=== PATIENT | male | born 1985 ===

== ENCOUNTER 2017-02-09 12:31 | Emergency (ER) | payer MEDICAID, OTHER ==
[2017-02-09 12:32] VITALS: BMI 29.5
[2017-02-09 12:51] VITALS: BP 137/92; PULSE 73; RESP 18; TEMP 97.9; O2SAT 98
--- NOTE | 2017-02-09 14:12 | RAD ---
PROCEDURE: Left Hand Radiographs. HISTORY: pain to dorsum hand s/p crush injury COMPARISON: None. FINDINGS: BONES: Normal. No fracture. JOINTS: Normal. No osteoarthritic changes. SOFT TISSUES: Normal. OTHER FINDINGS: None. IMPRESSION: Normal left hand radiographs.
--- NOTE | 2017-02-09 14:33 | C.PDOC ---
Time Seen by Provider: 02/09/17 13:19 Chief Complaint (Nursing): Lower Extremity Problem/Injury Past Medical History Vital Signs: Last Vital Signs Temp 97.9 F 02/09/17 12:47 Pulse 73 02/09/17 12:47 Resp 18 02/09/17 12:47 BP 137/92 H 02/09/17 12:47 Pulse Ox 98 02/09/17 12:47 - Social History Hx Alcohol Use: No Hx Substance Use: No - Immunization History Hx Tetanus Toxoid Vaccination: No Hx Influenza Vaccination: No Hx Pneumococcal Vaccination: No ED Course And Treatment O2 Sat by Pulse Oximetry: 98 Medical Decision Making Medical Decision Making: IMPRESSION: Normal left hand radiographs. hand xray neg for fx; pt to be discharged with med clinic and ortho outpt follow up. Disposition Counseled Patient/Family Regarding: Studies Performed, Diagnosis, Need For Followup - Disposition Referrals: Hussein Cornejo MD [Staff Provider] - [facility] at [facility] [Outside] Disposition: HOME/ ROUTINE Disposition Time: 14:32 Condition: STABLE Additional Instructions: Please follow up with Dr Cornejo (othopedist) for back, knee and hand pain, as well as medical clinic for referral to physcial therapy. Take ibuprofen 600 mg by mouth every 6 hours (with food) if needed. Forms: [facility] (Bulgarian), General Discharge Instructions - Clinical Impression Clinical Impression: Left hand pain, Chronic pain of left knee
--- NOTE | 2017-02-09 14:39 | C.PDOC ---
History Of Present Illness 31 year old male presents to the ED for evaluation of chronic lower back pain and chronic left knee pain. Patient states he works in construction and suffered a crushing injury to his left hand 2 weeks ago and notes the area is still painful. Patient denies extremity numbness and tingling sensation at this time, no lower extremity weakness, no bladder or bowel dysfunction, no saddle anesthesia. Time Seen by Provider: 02/09/17 13:19 Chief Complaint (Nursing): Lower Extremity Problem/Injury History Per: Patient History/Exam Limitations: no limitations Onset/Duration Of Symptoms: Days Current Symptoms Are (Timing): Still Present Additional History Per: Patient Past Medical History Reviewed: Historical Data, Nursing Documentation, Vital Signs Vital Signs: Last Vital Signs Temp 97.9 F 02/09/17 12:47 Pulse 73 02/09/17 12:47 Resp 18 02/09/17 12:47 BP 137/92 H 02/09/17 12:47 Pulse Ox 98 02/11/17 19:00 - Medical History PMH: No Chronic Diseases Surgical History: No Surg Hx Family History: States: Unknown Family Hx - Social History Hx Alcohol Use: No Hx Substance Use: No - Immunization History Hx Tetanus Toxoid Vaccination: No Hx Influenza Vaccination: No Hx Pneumococcal Vaccination: No Review Of Systems Musculoskeletal: Positive for: Back Pain (lower ), Hand Pain (left), Other ( left knee pain ) Neurological: Negative for: Weakness, Numbness Physical Exam - Physical Exam Appears: Non-toxic, No Acute Distress Skin: Normal Color, Warm, Dry Back: No Vertebral Tenderness, No Paraspinal Tenderness Extremity: Normal ROM (to bilateral knees ), Tenderness (mild, to dorsum of left hand ), Capillary Refill (less than 2 seconds ), No Swelling Pulses: Left Radial: Normal Neurological/Psych: Oriented x3, Normal Speech, Normal Cognition, Normal Sensation Gait: Steady ED Course And Treatment O2 Sat by Pulse Oximetry: 98 (on RA) Pulse Ox Interpretation: Normal Medical Decision Making Medical Decision Making: Progress: Left hand XR ordered. IMPRESSION: Normal left hand radiographs. hand xray neg for fx; pt to be discharged with med clinic and ortho outpt follow up. Disposition - Disposition Referrals: [facility] at [facility] [Outside] Hussein Cornejo MD [Staff Provider] - Disposition: HOME/ ROUTINE Disposition Time: 14:30 Condition: STABLE Additional Instructions: Please follow up with Dr Cornejo (othopedist) for back, knee and hand pain, as well as medical clinic for referral to physcial therapy. Take ibuprofen 600 mg by mouth every 6 hours (with food) if needed. Forms: General Discharge Instructions, [facility] (Malaysian), Work Excuse - Clinical Impression Clinical Impression: Left hand pain, Chronic pain of left knee - PA / [employer] / Resident Statement MD/DO has reviewed & agrees with the documentation as recorded. - Scribe Statement The provider has reviewed the documentation as recorded by the Scribe (Britt Koelher) All medical record entries made by the Scribe were at my direction and personally dictated by me. I have reviewed the chart and agree that the record accurately reflects my personal performance of the history, physical exam, medical decision making, and the department course for this patient. I have also personally directed, reviewed, and agree with the discharge instructions and disposition.
== END 2017-02-09 14:42 | disposition home or self-care (01) ==
LOC: C.ER 12:31
DX: M79.642 Pain in left hand (principal); M25.562 Pain in left knee; G89.29 Other chronic pain

== ENCOUNTER 2017-04-30 09:19 | Emergency (ER) | payer MEDICAID, OTHER ==
[2017-04-30 09:20] VITALS: BMI 29.5
[2017-04-30 09:37] VITALS: BP 129/80; PULSE 79; RESP 15; TEMP 98.2; O2SAT 99
[2017-04-30] MEDS ORDERED: Lidocaine 5% Patch TD STA (10:01)
--- NOTE | 2017-04-30 10:01 | C.PDOC ---
History Of Present Illness 31 y/o male, with history of scoliosis, presents to the ER for evaluation of lower back pain which began after he fell down the steps and slid on his back last night. Patient reports that that he has pain mainly in the lower lumbar region. Patient reports that the pain is still throbbing. Patient denies headache, neck pain, nausea, vomiting, and diarrhea. Time Seen by Provider: 04/30/17 09:57 Chief Complaint (Nursing): Back Pain History Per: Patient History/Exam Limitations: no limitations Onset/Duration Of Symptoms: Days Current Symptoms Are (Timing): Still Present Severity: Moderate Past Medical History Reviewed: Historical Data, Nursing Documentation, Vital Signs Vital Signs: Last Vital Signs Temp 98.2 F 04/30/17 09:33 Pulse 79 04/30/17 09:33 Resp 15 04/30/17 09:33 BP 129/80 04/30/17 09:33 Pulse Ox 99 04/30/17 12:20 - Medical History PMH: Depression Surgical History: No Surg Hx Family History: States: No Known Family Hx - Social History Hx Alcohol Use: No Hx Substance Use: No - Immunization History Hx Tetanus Toxoid Vaccination: No Hx Influenza Vaccination: No Hx Pneumococcal Vaccination: No Review Of Systems Except As Marked, All Systems Reviewed And Found Negative. Constitutional: Negative for: Fever, Chills Gastrointestinal: Negative for: Nausea, Vomiting, Diarrhea Genitourinary: Negative for: Dysuria, Hematuria Musculoskeletal: Negative for: Neck Pain Neurological: Negative for: Headache Physical Exam - Physical Exam Appears: Non-toxic, No Acute Distress, Other (awake, alert) Skin: Normal Color, Warm Head: Atraumatic, Normacephalic Eye(s): bilateral: Normal Inspection Neck: Normal ROM, No Midline Cervical Tenderness, Supple Chest: Symmetrical Cardiovascular: Rhythm Regular Respiratory: Normal Breath Sounds, No Accessory Muscle Use, No Rales, No Rhonchi , No Wheezing Back: Normal Inspection, No CVA Tenderness, No Paraspinal Tenderness Extremity: Normal ROM Neurological/Psych: Oriented x3, Normal Speech, Normal Motor, Normal Sensation ED Course And Treatment O2 Sat by Pulse Oximetry: 99 (RA) Pulse Ox Interpretation: Normal Medical Decision Making Medical Decision Making: Impression: Lower Back Pain Plan: --Flexeril PO --Motrin PO --Tylenol PO --Lidoderm Patch Patient feeling better, will d/c with referral and meds Disposition Counseled Patient/Family Regarding: Diagnosis, Need For Followup, Rx Given - Disposition Referrals: Agnieszka Gee MD [Staff Provider] - Thanh Guzman MD [Non-Staff] - Disposition: HOME/ ROUTINE Disposition Time: 12:18 Condition: STABLE Prescriptions: Cyclobenzaprine [Cyclobenzaprine HCl] 10 mg PO TID #15 tab Ibuprofen [Motrin] 600 mg PO TID #15 tab Forms: General Discharge Instructions, [facility] (Tajik), Work Excuse - POA Present On Arrival: None - Clinical Impression Clinical Impression: Low back pain - Scribe Statement The provider has reviewed the documentation as recorded by the Dao Lundberg Provider Attestation: All medical record entries made by the Rastaibe were at my direction and personally dictated by me. I have reviewed the chart and agree that the record accurately reflects my personal performance of the history, physical exam, medical decision making, and the department course for this patient. I have also personally directed, reviewed, and agree with the discharge instructions and disposition.
[2017-04-30] MEDS ORDERED: Lidocaine 5% Patch TD ONE (10:10)
== END 2017-04-30 12:25 | disposition home or self-care (01) ==
LOC: C.ER 09:19
DX: M54.5 Low back pain (principal)

== ENCOUNTER 2018-01-14 21:38 | Emergency (ER) | payer OTHER ==
[2018-01-14 21:39] VITALS: BMI 29.5
--- NOTE | 2018-01-14 22:14 | C.PDOC ---
History Of Present Illness 32 year old male presents to the ED c/o bilateral forearm and lower back pain. Patient states his pain is dull, aching. Patient reports he does a lot of heavy lifting at work. Patient denies fever, chills, CP, SOB, abdominal pain, injury, fall, trauma, weakness, numbness, bowel incontinence, saddle anesthesia. Time Seen by Provider: 01/14/18 22:14 Chief Complaint (Nursing): Hip Pain History Per: Patient History/Exam Limitations: no limitations Onset/Duration Of Symptoms: Days Current Symptoms Are (Timing): Still Present Recent travel outside of the [place]: No Additional History Per: Patient Past Medical History Reviewed: Historical Data, Nursing Documentation, Vital Signs Vital Signs: Last Vital Signs Temp 98.2 F 01/14/18 21:48 Pulse 100 H 01/14/18 21:48 Resp 20 01/14/18 21:48 BP 152/99 H 01/14/18 21:48 Pulse Ox 96 01/14/18 21:48 - Medical History PMH: Depression Surgical History: No Surg Hx Family History: States: Unknown Family Hx - Social History Hx Alcohol Use: No Hx Substance Use: No - Immunization History Hx Tetanus Toxoid Vaccination: No Hx Influenza Vaccination: No Hx Pneumococcal Vaccination: No Review Of Systems Constitutional: Negative for: Fever, Chills Cardiovascular: Negative for: Chest Pain Respiratory: Negative for: Shortness of Breath Gastrointestinal: Negative for: Nausea, Vomiting, Abdominal Pain Genitourinary: Negative for: Incontinence Musculoskeletal: Positive for: Arm Pain, Back Pain Skin: Negative for: Rash Neurological: Negative for: Weakness, Numbness, Headache, Dizziness Physical Exam - Physical Exam Appears: Non-toxic, No Acute Distress Skin: Warm, Dry Head: Normacephalic Eye(s): bilateral: Normal Inspection Neck: Supple Chest: Symmetrical Cardiovascular: Rhythm Regular Respiratory: No Rales, No Rhonchi, No Wheezing Gastrointestinal/Abdominal: Soft, No Tenderness, No Guarding, No Rebound Back: Normal Inspection Extremity: Bilateral: Atraumatic, Normal Color And Temperature, Normal ROM Neurological/Psych: Oriented x3, Normal Speech, Normal Cognition, Normal Motor, Normal Sensation Gait: Steady ED Course And Treatment - Laboratory Results Result Diagrams: 01/14/18 22:45 01/14/18 22:45 O2 Sat by Pulse Oximetry: 96 (ON RA) Pulse Ox Interpretation: Normal Disposition Counseled Patient/Family Regarding: Studies Performed, Diagnosis, Need For Followup, Rx Given - Disposition Referrals: Shaik Willett MD [Staff Provider] - Disposition: HOME/ ROUTINE Disposition Time: 22:14 Condition: FAIR Additional Instructions: Please return if symptoms recur Prescriptions: traMADol [Ultram] 50 mg PO TID PRN #15 tab PRN Reason: Pain, Severe (8-10) Instructions: Muscle and Bone Pain (DC), Low Back Pain (DC) Forms: [email or web address] (Welsh), Work Excuse - Clinical Impression Clinical Impression: Myalgia, Back pain - Scribe Statement The provider has reviewed the documentation as recorded by the Scribe Donaldo Johnson All medical record entries made by the Scribe were at my direction and personally dictated by me. I have reviewed the chart and agree that the record a ccurately reflects my personal performance of the history, physical exam, medical decision making, and the department course for this patient. I have also personally directed, reviewed, and agree with the discharge instructions and disposition.
[2018-01-14] MEDS ORDERED: Sodium Chloride 0.9% 1,000 ML IV ONE (22:22)
[2018-01-14] MEDS ORDERED: Sodium Chloride 0.9% 1,000 ML ONE (22:34)
[2018-01-14 22:49] LABS: BASO % 0.5 % (0.0-2.0); EOS # 0.5 K/uL (0.0-0.7); EOS % 5.8 % (0.0-4.0); HEMOGLOBIN 14.8 g/dL (12.0-18.0); LYMPH # 1.7 K/uL (1.0-4.3); LYMPH % 22.3 % (20.0-40.0); MEAN CELL VOLUME 87.6 fL (80.0-94.0); MEAN CORPUSCULAR HEMOGLOBIN 30.3 pg (27.0-31.0); MEAN CORPUSCULAR HGB CONC 34.6 g/dL (33.0-37.0); MEAN PLATELET VOLUME 7.9 fL (7.2-11.7); MONO # 0.8 K/uL (0.0-0.8); MONO % 9.9 % (0.0-10.0); NEUT # 4.8 K/uL (1.8-7.0); NEUT % 61.5 % (50.0-75.0); RBC 4.9 Mil/uL (4.40-5.90); RED CELL DISTRIBUTION WIDTH 13.9 % (11.5-14.5); WHITE BLOOD COUNT 7.8 K/uL (4.8-10.8)
[2018-01-14 23:02] LABS: BLOOD UREA NITROGEN 15 mg/dL (9-20); GFR NON-AFRICAN AMERICAN > 60
[2018-01-14 23:37] VITALS: BP 122/75; PULSE 66; RESP 18; TEMP 97.7
[2018-01-14 23:38] VITALS: O2SAT 96
== END 2018-01-14 23:44 | disposition home or self-care (01) ==
LOC: C.ER 21:38
DX: M79.10 Myalgia, unspecified site (principal); M54.9 Dorsalgia, unspecified
CPT/HCPCS: 80048; 82550; 85025; 96361; 96374; 99285; J1885; J7030

== ENCOUNTER 2018-02-11 14:54 | Emergency (ER) | payer OTHER ==
[2018-02-11 14:54] VITALS: BMI 29.5
[2018-02-11 15:14] VITALS: BP 134/80; PULSE 68; RESP 17; TEMP 97.8; O2SAT 97
[2018-02-11] MEDS ORDERED: Tdap Vaccine 0.5 ml Vial (10-64 yrs) IM ONE ×2 (16:36→16:44)
[2018-02-11] MEDS ORDERED: Bacitracin 500 Units/gm Oint Foilpak UD TOP ONE (16:36)
--- NOTE | 2018-02-11 16:36 | RAD ---
Date of service: 02/11/2018 PROCEDURE: Right middle finger radiographs. HISTORY: s/p crush injury - r/o fx COMPARISON: None. TECHNIQUE: AP radiograph of the right hand, as well as spot oblique and lateral images of right middle finger were obtained. FINDINGS: RIGHT MIDDLE FINGER: Right middle finger normal, without fracture of focal lesion. Remainder of the right hand (as seen on the AP view) grossly unremarkable. JOINTS: Normal. SOFT TISSUES: Normal. OTHER FINDINGS: None. IMPRESSION: Normal right middle finger radiographs.
[2018-02-11] MEDS ORDERED: Bacitracin 500 Units/gm Oint Foilpak UD ONE (16:44)
--- NOTE | 2018-02-11 20:19 | C.PDOC ---
History Of Present Illness 32 y/o male presents to the ER complaining of right 3rd finger pain which has been present since last night. Patient states that a metal container fell on his finger at work last night. Patient reports that he did not seek medical attention at the time. He notes that there is no bleeding. Denies having weakness and numbness. Time Seen by Provider: 02/11/18 15:17 Chief Complaint (Nursing): Abnormal Skin Integrity History Per: Patient History/Exam Limitations: no limitations Onset/Duration Of Symptoms: Days Current Symptoms Are (Timing): Still Present Severity: Moderate Past Medical History Reviewed: Historical Data, Nursing Documentation, Vital Signs Vital Signs: Last Vital Signs Temp 97.8 F 02/11/18 15:12 Pulse 68 02/11/18 15:12 Resp 17 02/11/18 15:12 BP 134/80 02/11/18 15:12 Pulse Ox 97 02/11/18 15:12 - Medical History PMH: Depression Surgical History: No Surg Hx Family History: States: No Known Family Hx - Social History Hx Alcohol Use: Yes Hx Substance Use: No - Immunization History Hx Tetanus Toxoid Vaccination: No Hx Influenza Vaccination: No Hx Pneumococcal Vaccination: No Review Of Systems Except As Marked, All Systems Reviewed And Found Negative. Musculoskeletal: Positive for: Hand Pain Neurological: Negative for: Weakness, Numbness Physical Exam - Physical Exam Appears: Non-toxic, No Acute Distress Skin: Normal Color, Warm, Dry, Other (superficial laceration to DIP joint over dorsal aspect of right 3rd finger) Head: Atraumatic, Normacephalic Eye(s): bilateral: Normal Inspection Nose: Normal Oral Mucosa: Moist Neck: Supple Chest: Symmetrical Extremity: Normal ROM, No Tenderness, Capillary Refill (< 2 seconds), No Swelling Pulses: Right Radial: Normal Neurological/Psych: Oriented x3, Normal Speech ED Course And Treatment O2 Sat by Pulse Oximetry: 97 (RA) Pulse Ox Interpretation: Normal - Other Rad X-Ray-Right Hand X-Ray: Viewed By Me, Read By Radiologist Interpretation: Date of service: 02/11/2018. PROCEDURE: Right middle finger radiographs. HISTORY: s/p crush injury - r/o fx. COMPARISON: None. TECHNIQU E: AP radiograph of the right hand, as well as spot oblique and lateral images of right middle finger were obtained. FINDINGS: RIGHT MIDDLE FINGER: Right middle finger normal, without fracture of focal lesion. Remainder of the right hand (as seen on the AP view) grossly unremarkable. JOINTS: Normal. SOFT TISSUES: Normal. OTHER FINDINGS: None. IMPRESSION: Normal right middle finger radiographs. Medical Decision Making Medical Decision Making: Plan: --X-Ray-Right Hand --Tetanus IM --Bacitracin Disposition - Disposition Referrals: [facility] [Outside] [facility] [Outside] Disposition: HOME/ ROUTINE Disposition Time: 16:30 Condition: GOOD Additional Instructions: TAY HARDIN, thank you for letting us take care of you today. The emergency medical care you received today was directed at your acute symptoms. If you were prescribed any medication, please fill it and take as directed. It may take several days for your symptoms to resolve. Return to the Emergency Department if your symptoms worsen, do not improve, or if you have any other problems. Please contact your doctor or call one of the physicians/clinics you have been referred to that are listed on the Patient Visit Information form that is included in your discharge packet. Bring any paperwork you were given at discharge with you along with any medications you are taking to your follow up visit. Our treatment cannot replace ongoing medical care by a primary care provider outside of the emergency department. Thank you for allowing the [facility] team to be part of your care today. Follow up with your primary care doctor or the emergency room if you have any concerns. Prescriptions: Cephalexin [cephalexin] 500 mg PO TID #15 cap Ibuprofen [Motrin] 600 mg PO Q6 PRN #20 tab PRN Reason: Pain, Moderate (4-7) Instructions: Wound Care (DC) Forms: [employer] (Tajik) - Clinical Impression Clinical Impression: Finger contusion - Scribe Statement The provider has reviewed the documentation as recorded by the Rastaibdionna Lundberg Provider Attestation: All medical record entries made by the Scribe were at my direction and personally dictated by me. I have reviewed the chart and agree that the record accurately reflects my personal performance of the history, physical exam, medical decision making, and the department course for this patient. I have also personally directed, reviewed, and agree with the discharge instructions and disposition.
== END 2018-02-11 16:45 | disposition home or self-care (01) ==
LOC: C.ER 14:54
DX: S60.031A Contusion of right middle finger without damage to nail, initial encounter (principal); W22.8XXA Striking against or struck by other objects, initial encounter; Y92.89 Other specified places as the place of occurrence of the external cause; Y99.0 Civilian activity done for income or pay